=== PATIENT | female | born 1990 | race Two or more races ===

== ENCOUNTER 2017-11-06 18:57 | Emergency (ER) | payer MEDICAID, OTHER ==
[~2017-11-06] VITALS: Ht 157.5 cm; Wt 62.5 kg
[2017-11-06 19:25] LABS: BASOPHILS # (AUTO) 0.02 x10^3/uL (0-0.1); BASOPHILS % (AUTO) 0 % (0-1); EOSINOPHILS # (AUTO) 0.12 x10^3/uL (0-0.4); EOSINOPHILS % (AUTO) 2 % (1-7); LYMPHOCYTES # (AUTO) 1.92 x10^3/uL (1-3.4); LYMPHOCYTES % (AUTO) 29 % (22-44); MD NO; MEAN CORPUSCULAR HEMOGLOBIN 21.3 pg (27.0-34.8); MEAN CORPUSCULAR HGB CONC 31.2 g/dL (32.4-35.8); MEAN CORPUSCULAR VOLUME 68.3 fL (80-100); MEAN PLATELET VOLUME 8.2 fL (7.4-10.4); MONOCYTES # (AUTO) 0.43 x10^3/uL (0.2-0.8); MONOCYTES % (AUTO) 6 % (2-9); NEUTROPHILS # (AUTO) 4.13 x10^3/uL (1.8-6.8); NEUTROPHILS % (AUTO) 62 % (42-75); PLATELET COUNT 437 x10^3/uL (130-400); RED BLOOD COUNT 4.83 x10^6/uL (3.82-5.3); RED CELL DISTRIBUTION WIDTH 17.4 % (9.6-15.2)
[2017-11-06] MEDS ORDERED: ONDANSETRON ODT 4 MG PO ONE (19:30)
[2017-11-06] MEDS ORDERED: SODIUM CHLORIDE 0.9% 1,000ML IV ONE (19:30)
[2017-11-06 19:37] LABS: ALBUMIN 3.9 g/dL (3.4-5.0); ANION GAP 7 mmol/L (5-15); CALCIUM 8.2 mg/dL (8.5-10.1); CHLORIDE 107 mmol/L (98-107)
[2017-11-06] MEDS ORDERED: ONDANSETRON ODT 4 MG ONE (19:39)
[2017-11-06 19:42] LABS: CREATININE 0.75 mg/dL (0.55-1.02)
[2017-11-06 19:44] LABS: ALBUMIN 3.8 g/dL (3.4-5.0)
[2017-11-06 19:48] LABS: BILIRUBIN, DIRECT 0.1 mg/dL (0.1-0.2); BILIRUBIN,INDIRECT 0.5 mg/dL (0.0-2.0); BILIRUBIN,TOTAL 0.6 mg/dL (0.2-1.0)
[2017-11-06 20:46] LABS: MICROSCOPIC AUTO
[2017-11-06 20:54] LABS: CULTURE INDICATED? YES
[2017-11-06] MEDS ORDERED: KETOROLAC 30 MG/1 ML ONE (21:13)
[2017-11-06] MEDS ORDERED: METHOCARBAMOL 750 MG TABLET PO ONE (21:30)
[2017-11-06] MEDS ORDERED: KETOROLAC 30 MG/1 ML IVPush ONE (21:30)
[2017-11-06] MEDS ORDERED: METHOCARBAMOL 750 MG TABLET ONE (21:31)
[2017-11-06 22:13] VITALS: BP 141/88
== END 2017-11-06 22:16 | disposition home or self-care (01) ==
LOC: ED 22:00
DX: R10.9 Unspecified abdominal pain (principal); M54.5 Low back pain; Z90.49 Acquired absence of other specified parts of digestive tract
CPT/HCPCS: 36415; 80048; 80076; 81001; 82040; 83690; 84703; 85025; 87077; 87086; 87186; 96374; 96375; 99284; J1885; J7030; Q0162

== ENCOUNTER 2020-02-26 11:19 | Emergency (ER) | payer MEDICAID, OTHER ==
[~2020-02-26] VITALS: Ht 160 cm; Wt 67.0 kg
[2020-02-26] MEDS ORDERED: KETOROLAC 60 MG/2 ML ONE (11:44)
[2020-02-26] MEDS ORDERED: KETOROLAC 30 MG/1 ML IM ONE (12:00)
--- NOTE | 2020-02-26 12:04 | NUR ---
PT WITH C/O BACK/FLANK PAIN THAT BEGAN LAST NIGHT, PT DENIES OTHER URINARY SYMPTOMS. PT WITH HX OF UTI IN PAST STATES, "THIS FEELS DIFFERENT" PT MEDICATED PER MAR. PT AMBULATED TO BR WITH STEADY GAIT, UA SAMPLE COLLECTED AND SENT TO LAB. PT TO BP, CONT PULSE OX.
[2020-02-26 12:11] LABS: BASOPHILS # (AUTO) 0.05 x10^3/uL (0-0.1); BASOPHILS % (AUTO) 1 % (0-1); EOSINOPHILS # (AUTO) 0.11 x10^3/uL (0-0.4); EOSINOPHILS % (AUTO) 2 % (1-7); LYMPHOCYTES % (AUTO) 20 % (22-44); MD NO; MEAN CORPUSCULAR HEMOGLOBIN 25.4 pg (27.0-34.8); MEAN CORPUSCULAR HGB CONC 31.9 g/dL (32.4-35.8); MEAN PLATELET VOLUME 9.4 fL (7.4-10.4); MONOCYTES # (AUTO) 0.47 x10^3/uL (0.2-0.8); MONOCYTES % (AUTO) 6 % (2-9); NEUTROPHILS # (AUTO) 5.39 x10^3/uL (1.8-6.8); NEUTROPHILS % (AUTO) 72 % (42-75); PLATELET COUNT 335 x10^3/uL (130-400); RED BLOOD COUNT 4.75 x10^6/uL (3.82-5.3); RED CELL DISTRIBUTION WIDTH 15.4 % (9.6-15.2)
[2020-02-26 12:36] LABS: ALBUMIN 3.8 g/dL (3.4-5.0); ANION GAP 5 mmol/L (5-15); CALCIUM 8.9 mg/dL (8.5-10.1); CHLORIDE 107 mmol/L (98-107)
[2020-02-26 12:41] LABS: ALANINE AMINOTRANSFERASE 19 U/L (12-78); ALKALINE PHOSPHATASE 94 U/L (45-117); BILIRUBIN,TOTAL 0.8 mg/dL (0.2-1.0); CREATININE 0.62 mg/dL (0.55-1.02); TOTAL PROTEIN 7.4 g/dL (6.4-8.2)
[2020-02-26 12:43] LABS: MICROSCOPIC INDICATED
--- NOTE | 2020-02-26 13:55 | NUR ---
STRAIGHT CATH PERFORMED AND SENT TO LAB. Addendum: 02/26/20 at 1355 by [email or web address] PT WITH LOW BP SINCE ARRIVAL, MOY MADE AWARE, 85-90/40S. RECHECK BP NOW 101/41, MOY UPDATED. PT ASYMPTOMATIC TO THIS [place] STATES HE BP IS USUALLY "NORMAL"
[2020-02-26] MEDS ORDERED: SODIUM CHLORIDE 0.9% 1,000ML IVBOLUS ONE (14:00)
[2020-02-26] MEDS ORDERED: HYDROmorphone 2 MG/ML, 1ML IVPush PRN (14:00)
[2020-02-26] MEDS ORDERED: CEFTRIAXONE PMX 1GM/50ML 50 ML IVPB ONE (14:00)
--- NOTE | 2020-02-26 14:02 | NUR ---
PT TO CT
[2020-02-26] MEDS ORDERED: HYDROmorphone 1 MG/ML, 1ML INJ ONE (14:25)
[2020-02-26] MEDS ORDERED: CEFTRIAXONE PMX 1GM/50ML 50 ML ONE (14:25)
--- NOTE | 2020-02-26 14:41 | NUR ---
BREAK RN NOTE: PIV PLACED. IVF AND ROCEPHIN GTT INITIATED PER EMAR, PER MD NO BLOOD CX INDICATED. MD INFORMED BP 87/51, RN INSTRUCTED TO HOLD DILAUDID DOSE UNTIL BP IMPROVES.
[2020-02-26 14:48] LABS: MICROSCOPIC AUTO
--- NOTE | 2020-02-26 14:50 | NUR ---
report given back to primary JANETH Neely.
--- NOTE | 2020-02-26 16:17 | NUR ---
PT RESTING ON GURNEY AT THIS TIME, BP REMAINS LOW POST BOLUS ALTHOUGH STABLE 92/53. NAD AT THIS TIME
[2020-02-26] MEDS ORDERED: SODIUM CHLORIDE 0.9%, 500ML IVBOLUS ONE (17:00)
[2020-02-26] MEDS ORDERED: FENTANYL PF 100 MCG/2ML IVPush ONE (17:00)
[2020-02-26] MEDS ORDERED: FENTANYL PF 100 MCG/2ML ONE (17:33)
--- NOTE | 2020-02-26 17:45 | NUR ---
PT MEDICATED FOR PAIN PER MAR/ERMD ORDER. WILL MONITOR BP, PROCEED WITH DC IF STABLE
[2020-02-26 18:01] VITALS: BP 100/57
== END 2020-02-26 18:12 | disposition home or self-care (01) ==
LOC: ED 14:50
DX: N83.291 Other ovarian cyst, right side (principal); N10 Acute pyelonephritis; R11.0 Nausea; R10.9 Unspecified abdominal pain; M54.5 Low back pain; Z87.891 Personal history of nicotine dependence
CPT/HCPCS: 36415; 74176; 80053; 81001; 84703; 85025; 87077; 87086; 96365; 96372; 96375; 99285; J0696; J1885; J3010; J7030; J7040; 87186

== ENCOUNTER 2020-05-16 01:37 | Emergency (ER) | payer MEDICAID ==
[~2020-05-16] VITALS: Ht 160 cm; Wt 66.0 kg
--- NOTE | 2020-05-16 02:26 | NUR ---
PT. TO ED WITH C/O LEFT LOWER JAW SWELLING STARTING YESTERDAY AM UPON WAKING. C/O PAINFUL SWALLOWING. ABLE TO MAINTAIN OWN AIRWAY. IV ESTABLISHED. 1 SET OF BLOOD CULTURES DRAWN WITH IV START. CONTINUOUS PULSE OX AND B/P MONITORS PLACED. REPORT TO JANETH RUSHING TO ASSUME CARE(THIS RN STILL PRECEPTING). CALL LIGHT IN REACH. ALL SAFETY MEASURES OBSERVED.
[2020-05-16] MEDS ORDERED: ACETAMINOPHEN 325 MG TABLET PO ONE (02:30)
[2020-05-16] MEDS ORDERED: ACETAMINOPHEN 325 MG TABLET ONE (02:31)
--- NOTE | 2020-05-16 02:33 | NUR ---
PT MEDICATED PER EMAR WITH SMALL SIPS, PT STATES NO OTHER NEEDS AT THIS TIME, LAB AT BEDSIDE
[2020-05-16 02:57] LABS: BASOPHILS % (AUTO) 0 % (0-1); EOSINOPHILS % (AUTO) 0 % (1-7); LYMPHOCYTES % (AUTO) 11 % (22-44); MEAN CORPUSCULAR HEMOGLOBIN 26.2 pg (27.0-34.8); MEAN CORPUSCULAR HGB CONC 32.7 g/dL (32.4-35.8); MEAN PLATELET VOLUME 9.2 fL (7.4-10.4); MONOCYTES % (AUTO) 6 % (2-9); NEUTROPHILS % (AUTO) 83 % (42-75); PLATELET COUNT 327 x10^3/uL (130-400); RED BLOOD COUNT 4.83 x10^6/uL (3.82-5.3); RED CELL DISTRIBUTION WIDTH 15.6 % (9.6-15.2)
[2020-05-16 03:02] LABS: ANION GAP 7 mmol/L (5-15); CALCIUM 8.6 mg/dL (8.5-10.1); CHLORIDE 105 mmol/L (98-107); CREATININE 0.71 mg/dL (0.55-1.02)
[2020-05-16 03:17] LABS: MD SCAN
[2020-05-16] MEDS ORDERED: OMNIPAQUE 350 MG/ML, 75ML BOTTLE ONE (03:32)
--- NOTE | 2020-05-16 04:28 | NUR ---
BLOOD CULTURES PULLED PRIOR TO ABX ADMIN
[2020-05-16] MEDS ORDERED: CLINDAMYCIN PMX 600MG/50ML 50 ML ONE (04:29)
[2020-05-16] MEDS ORDERED: CLINDAMYCIN PMX 600MG/50ML 50 ML IV ONE (04:30)
--- NOTE | 2020-05-16 05:26 | NUR ---
IV ABX STILL RUNNING, PT STATES SHE IS DOING FINE AND HAS NO NEEDS AT THIS TIME
[2020-05-16 05:47] VITALS: BP 93/57
== END 2020-05-16 06:00 | disposition home or self-care (01) ==
LOC: ED 05:50
DX: K02.9 Dental caries, unspecified (principal); L03.211 Cellulitis of face; M79.89 Other specified soft tissue disorders; R51.9 Headache, unspecified; Z90.49 Acquired absence of other specified parts of digestive tract; Z90.89 Acquired absence of other organs
CPT/HCPCS: 36415; 70487; 80048; 82040; 85025; 87040; 96365; 99285; Q9967

== ENCOUNTER → 2021-01-23 | Outpatient (CLI) | payer MEDICAID | END | disposition home or self-care (01) | LOC: CFH 12:36 | PROVIDERS: ATTEND Nurse Practitioner Family | DX: M43.8X6 Other specified deforming dorsopathies, lumbar region (principal); Z90.49 Acquired absence of other specified parts of digestive tract | CPT/HCPCS: 74176 ==